=== PATIENT | female | born 1990 | race Caucasian/White ===

== ENCOUNTER 2016-10-07 16:47 | Emergency (ER) | payer OTHER ==
[~2016-10-07] VITALS: Ht 154.9 cm; Wt 68.0 kg
[~2016-10-07 16:47] MED LIST: FERR-55 PO; PREN-39 PO
[2016-10-07 16:57] VITALS: Ht 154.9 cm; Wt 68.0 kg
--- NOTE | 2016-10-07 18:57 | RADRPT ---
PROCEDURE: Real Time Sonogram. 10/07/2016 05:53 p.m. CLINICAL INDICATION: Abdominal pain. TECHNIQUE: This procedure was performed on a [facility]ang real time Unit using a endovaginal probe. COMPARISON: None FINDINGS: The uterus is enlarged. Contains a single viable fetus with gestational sac. Presentation: Mobile. Cervical Length: Not measured.Placental Location: Anterior fundal grade 0.Placental Previa: No. Body limb and cardiac motion: Gas.Heart rate: 154 beats per minute. Amniotic fluid volume:Normal. Measured data: BPD:2.6 cm14 weeks 4 days. HC:9.7 cm14 weeks 3 days. AC:8.8 cm15 weeks 3 days FC:1.4 cm14 weeks 2 days AUA:14 weeks 4 daysplus or minus 1 week 0 days. BRODY (AUA):04/03/2017. Serial scan estimated menstrual age: Not calculated. weight: 102.1 g plus or minus 15.32 g Endovaginal imaging utilized: Yes. Additional findings: The ovaries were not evaluated. No free fluid or adnexal masses are identified . IMPRESSION: See above RPTAT:AAJJ Physician Lucila Date Time Electronically viewed and signed by Physician Lucila on 10/07/2016 18:56 /
[2016-10-07 19:40] LABS: URINE BLOOD (Dip) POC Negative (NEGATIVE)
[2016-10-07 19:43] LABS: URINE BLOOD (Dip) POC Negative (NEGATIVE)
[2016-10-07] MEDS ORDERED: CEPH-443 PO (19:57)
--- NOTE | 2016-10-07 20:00 | ERD ---
ER Documentation Chief Complaint Date/Time DATE: 10/07/16 TIME: 19:58 Chief Complaint ABDOMINAL PAIN X 3 DAYS, CHEST PAIN X 6 DAYS, 15 WEEKS HPI Patient is a 26-year-old with one spontaneous approximately 15 weeks complaining of bilateral lower pelvic pain that she has had for approximately 3 days. Pain is throbbing 8 out of 10 nonradiating. She denies any dysuria or hematuria but does admit to urinary frequency. Denies any vaginal bleeding. Denies any nausea or vomiting or diarrhea. She is complaining of chest pain that she has had for 6 days. Denies any palpitations or shortness of breath. She has a history of pericardial tissue heart valve. ROS All systems reviewed and are negative except as per history of present illness. Medications Home Meds Active Scripts Cephalexin* (Keflex*) 500 Mg Capsule, 500 MG PO BID for 5 Days, CAP Prov:MARIBELL COLEY PA-C 10/07/16 Reported Medications Ferrous Sulfate* (Ferrous Sulfate*) 325 Mg Tablet, 325 MG PO BID 01/30/13 Vits W-Ca,Fe,Fa(<1MG) ( Vitamins) 1 Tab Tablet, 1 TAB PO DAILY , #1 01/30/13 Allergies Allergies: Coded Allergies: No Known Allergy (Unverified , 01/30/13) PMhx/Soc Medical and Surgical Hx: pt denies Medical Hx, pt denies Surgical Hx Hx Alcohol Use: No Hx Substance Use: No Hx Tobacco Use: No Smoking Status: Never smoker FmHx Family History: No diabetes Physical Exam Vitals Vital Signs Date Time Temp Pulse Resp B/P Pulse Ox O2 Delivery O2 Flow Rate FiO2 10/07/16 16:57 98.2 81 18 106/70 99 Physical Exam General: well developed, well nourished, alert, nontoxic, no distress Head: normocephalic, atraumatic Neck: Supple, nontender, no lymphadenopathy, no midline tenderness Respiratory: Clear to auscaultation bilaterally, speaks in full sentences, no use of accesory muscles or labored breathing, no rales, ronchi, or wheezing Cardiovascular: RRR, No murmurs GI: soft, non tender, non distended, negative murphys sign, negative mcburneys point tenderness, no cva tenderness bilaterally, no rebound or guarding Back: no midline tenderness, no step offs or bony abnormalities, sensation to light touch in tact Extremities: moving all extremities normally, normal gait, no edema Results 24 hrs Laboratory Tests Test 10/07/16 19:42 10/07/16 19:45 Bedside Urine pH (LAB) 6.0 6.5 Bedside Urine Protein (LAB) 1+ 1+ Bedside Urine Glucose (UA) Negative Negative Bedside Urine Ketones (LAB) 1+ 1+ Bedside Urine Blood Negative Negative Bedside Urine Nitrite (LAB) Negative Negative Bedside Urine Leukocyte Esterase (L Trace Trace Procedures/MDM female has abdominal pain and chest pain. Her vital signs are normal. She is well-appearing in no distress. EKG was normal sinus rhythm with a rate of 76 with no evidence of ST elevation or acute ischemic changes. I reviewed the case with Dr. 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 He explained that this is chronic and there is low concern for any emergent acute etiology for her chest pain. She should follow-up with her regular doctor given that her EKG is okay. Urine did show evidence of cystitis. Ultrasound showed normal intrauterine . Patient was discharged with Keflex. Recommended this patient follow up with her primary care doctor within 48 hours or return to the emergency room for any worsening of symptoms. However this time I do believe there is suitable for outpatient management. I answered all their questions and they agreed with the plan and were discharged home. Departure Diagnosis: Primary Impression: Chest pain Additional Impression: Cystitis Condition: Stable Patient Instructions: Cystitis, Chest Pain, Uncertain Cause Additional Instructions: Llame al doctor WENDY y aide denise ANDRES PARA DENTRO DE 1-2 ZAMARRIPA.Dgale a la secretaria que nosotros le instruimos hacer esta andres.Avise o llame si crespo condicin se empeora antes de la andres. Regresa aqui si peor o no mejor. MARIBELL COLEY PA-C October 07, 2016 20:00
[2016-10-07 20:01] LABS: ADD UMIC YES; URINE BILIRUBIN (Dip) NEGATIVE (NEGATIVE); URINE BLOOD (Dip) NEGATIVE (NEGATIVE); URINE COLOR YELLOW (YELLOW); URINE GLUCOSE (Dip) NEGATIVE (NEGATIVE); URINE KETONES (Dip) 15 (NEGATIVE); URINE LEUKOCYTE ESTERASE (Dip) 1+ (NEGATIVE); URINE NITRITE (Dip) NEGATIVE (NEGATIVE); URINE TOTAL PROTEIN (Dip) TRACE (NEGATIVE); URINE UROBILINOGEN (Dip) 1.0 E.U./dL (0.1-1.0)
[2016-10-07 20:10] VITALS: BP 108/60; PULSE 68; RESP 16
[2016-10-07 20:21] LABS: BACTERIA,URINE MODERATE; SQUAMOUS EPITHELIAL CELL,UR MANY; URINE RBCS 0-2 /HPF (0)
== END 2016-10-07 20:12 | disposition home or self-care (01) ==
LOC: FTE 16:47
DX: O99.89 Other specified diseases and conditions complicating pregnancy, childbirth and the puerperium (principal); O23.12 Infections of bladder in pregnancy, second trimester; R10.9 Unspecified abdominal pain; R07.9 Chest pain, unspecified; Z3A.15 15 weeks gestation of pregnancy
CPT/HCPCS: 76805; 81001; 81003; 93005

== ENCOUNTER 2017-04-01 16:44 | Inpatient (IN) | payer OTHER ==
[~2017-04-01] VITALS: Ht 154.9 cm; Wt 83.9 kg
[~2017-04-01 16:44] MED LIST changes: +CEPH-443 PO
--- NOTE | 2017-04-01 16:51 | TRIAGE ---
OB Triage Datetime Report Generated by CPN: 04/01/2017 16:51 Datetime: 04/01/2017 16:50 Time of Arrival: 04/01/2017 16:25 EGA: 39.4 Arrived By: Ambulatory Arrived From: Home Chief Complaint: ucs Movement: Present Contractions: Regular Time Contractions Began: 04/01/2017 08:00 Rupture of Membranes: Denies Vaginal Bleeding: Normal Show Vaginal Discharge: Present Recent Sexual Intercouse: Denies Abdominal Trauma: Not Applicable Patient Complaints: Contractions Datetime: 04/01/2017 16:49 Vaginal Exam Dilatation (cms): 6.0 Effacement (%): 90 Station: -3 Exam By: soraida harmon rn Membrane Status: Bulging Vaginal Bleeding: Normal Show Cervix, Consistency: Soft Cervix, Position: Midposition Presentation 'A': Cephalic
[2017-04-01] MEDS ORDERED: LACTATED RINGER'S 1,000 ML IV SCH (17:37)
[2017-04-01] MEDS ORDERED: LIDOCAINE 1% (MPF) 30 ML INJ INJ PRN (18:00)
[2017-04-01] MEDS ORDERED: OXYTOCIN 30 UNITS/LR 500 ML IV SCH (18:00)
[2017-04-01] MEDS ORDERED: OXYTOCIN 30 UNITS/LR 500 ML IV PRN ×2 (18:00→23:30)
[2017-04-01] MEDS ORDERED: IBUPROFEN 600 MG TAB PO PRN (18:00)
[2017-04-01] MEDS ORDERED: METHYLERGONOVINE 0.2 MG INJ IM PRN ×2 (18:00→23:30)
[2017-04-01] MEDS ORDERED: CARBOPROST 250 MCG INJ IM PRN ×2 (18:00→23:30)
[2017-04-01] MEDS ORDERED: BUTORPHANOL 2 MG INJ IV PRN (18:00)
[2017-04-01] MEDS ORDERED: LACTATED RINGER'S 1,000 ML IV PRN (18:00)
[2017-04-01] MEDS ORDERED: MISOPROSTOL 200 MCG TAB PR PRN ×2 (18:00→23:30)
[2017-04-01] MEDS: OXYTOCIN 30 UNITS/LR 500 ML IV SCH ×2 (18:42→19:55)
[2017-04-01 18:56] VITALS: Ht 154.9 cm; Wt 83.9 kg
[2017-04-01 18:57] VITALS: BP 124/62; PULSE 71; RESP 20
--- NOTE | 2017-04-01 19:55 | HP ---
Date/Time of Note Date/Time of Note DATE: 04/01/17 TIME: 19:40 OB - History Hx of Present Free Text/Dictation 27 [id number](sab) at 39w4d who had x1 c/s andf/b x2 here for in active labor with intact membrane. initial VE 6cm/90/-3 GBS neg admitted gor expectant management ,allow her to try . Past Family/Social History * Past Medical, Surgical, Family and Obstetric Histories reviewed from chart. OB Admission Exam Vital Signs Vital Signs Vital Signs Date Time Temp Pulse Resp B/P Pulse Ox O2 Delivery O2 Flow Rate FiO2 04/01/17 18:57 98.4 71 20 124/62 97 Room Air Physical Exam HEENT: WNL Heart: Rhythm Normal Lungs: Clear, Equal Abdomen: WNL Extremities: Normal Reflexes: Normal Cervical Dilatation: 6cm Effacement: Other (90%) Station: -3 Membranes: Intact Amniotic Fluid: Unevaluable Heart Rate: 140's Accelerations: Accelerations Present Decelerations: No Decelerations Varibility: Moderate Contractions on Admission: < 5 Minutes Apart Intensity: Moderate Last 72 hours Lab Results CBC & BMP 04/01/17 17:25 OB Assessment/Plan Reason for admission: active labor Other Assessment: IUP 39w4d with X1 previous section f/b x2VBAC in active labor Plan: Expectant Management NIKOS FREEMAN MD Apr 01, 2017 19:52
--- NOTE | 2017-04-01 20:03 | LDN ---
Date/Time of Note Date/Time of Note DATE: 04/01/17 TIME: 19:56 Delivery Summary vaginal delivery after cessarean section Weeks of Gestation 39w4d Placenta Delivered: Spontaneously Meconium: none Episiotomy: No Perineal laceration: 0 Anesthesia type: None Estimated blood loss: 300 Sponge & Needle done & correct: Yes All needle counts correct: Yes Any foreign bodies felt in the: No Problems: Infant Delivery Information Sex Infant Sex: male Apgars 1 Minute: 9 5 Minute: 9 Suctioning Nose & mouth suctioned at jessica: Yes Delee suction performed: No Umbilical Cord Umbilical cord with: 3 Vessels Cord presentations: no nuchal cord Cord Blood was obtained: Yes Mother & Baby Disposition Disposition Mom & Baby to Maternity; Good: Yes Mom transferred to: Other () Baby to NICU: No NIKOS FREEMAN MD Apr 01, 2017 20:03
[2017-04-01 22:50] VITALS: BP 110/55; PULSE 61; RESP 18
[2017-04-01 23:15] VITALS: BP 110/60; PULSE 70; RESP 20
[2017-04-01] MEDS ORDERED: WITCH HAZEL/GLYCERIN PAD PR PRN (23:30)
[2017-04-01] MEDS ORDERED: ZOLPIDEM 5 MG TAB PO PRN (23:30)
[2017-04-01] MEDS ORDERED: BENZOCAINE 20% 56 ML SPRAY TOP PRN (23:30)
[2017-04-01] MEDS ORDERED: OXYCODONE/ASPIRIN (4.88/325) TAB PO PRN ×2 (23:30)
[2017-04-01] MEDS ORDERED: LANOLIN 7 GM TUBE TOP PRN (23:30)
[2017-04-02] VITALS: BP 102/55; PULSE 70; RESP 18
[2017-04-02] MEDS: IBUPROFEN 600 MG TAB PO SCH ×4 (00:13→17:29)
[2017-04-02 04:00] VITALS: BP 120/62; PULSE 60; RESP 18
[2017-04-02 08:00] VITALS: BP 101/52; PULSE 60; RESP 18
[2017-04-02] MEDS: ASPIRIN 81 MG TAB PO SCH (09:07)
[2017-04-02] MEDS: SENNA/DOCUSATE NA (8.6MG/50MG) TAB PO SCH ×2 (09:07→22:52)
[2017-04-02] MEDS ORDERED: INFLUENZA VIRUS VACCINE 0.5 ML SYG IM* ONE (10:00)
--- NOTE | 2017-04-02 11:05 | PN ---
Date/Time of Note Date/Time of Note DATE: 04/02/17 TIME: 11:03 OB Subjective Subjective Subjective no c/o OB Objective Objective Objective vss afebrile fundus firm lochia mod calf neg for tenderness OB Assessment/Plan Other Assessment: stable post vaginal delivery #1 Other plan: Rhogam discharge home in am NIKOS FREEMAN MD Apr 02, 2017 11:05
[2017-04-02 15:40] VITALS: BP 92/50; PULSE 72; RESP 18
[2017-04-02 19:50] VITALS: BP 114/79; RESP 20
[2017-04-03] MEDS: IBUPROFEN 600 MG TAB PO SCH ×4 (00:20→18:03)
[2017-04-03 04:20] VITALS: BP 120/60; PULSE 80; RESP 18
[2017-04-03 08:00] VITALS: BP 107/56; PULSE 69; RESP 18
[2017-04-03] MEDS ORDERED: INFLUENZA VIRUS VACCINE 0.5 ML (DISPENSING) IM* ONE (09:00)
[2017-04-03] MEDS ORDERED: DIPHTH/TET/ACEL PERTUSS (ADULT) 0.5 ML VIAL IM* ONE (09:00)
[2017-04-03] MEDS: ASPIRIN 81 MG TAB PO SCH (09:05)
[2017-04-03] MEDS: SENNA/DOCUSATE NA (8.6MG/50MG) TAB PO SCH (09:05)
[2017-04-03 16:00] VITALS: BP 104/69; PULSE 68; RESP 18
--- NOTE | 2017-04-03 19:11 | PD.PPDC ---
DIVISION HUMAN RESOURCES MANAGER Discharge Instruction Diagnosis Final Diagnosis: \s/p normal vaginal delivery of macrosomia Condition Patient Condition: Stable Diet Diet: Resume Regular Diet Activity/Restrictions Activity: May Shower Restrictions: No Lifting No Sexual Activity Nothing in the Vagina No [place] No Tampons, douche Follow-up Follow-up with Physician: 2, Week/Weeks Provider Information: f/u with 3rd pressman in [facility] Return to clinic for SHANK SANDER Instructions: Fever greater than 101 Chills Worsening abdominal pain Excessive Vaginal Bleeding More than 2 pads per hour Unable to tolerate diet OB Instructions: Breast Tenderness Depression Blurried Vision Headache NIKOS FREEMAN MD Apr 03, 2017 19:11
--- NOTE | 2017-04-03 19:11 | PD.PPDC ---
NICKEL PLATER Discharge Instruction Diagnosis Final Diagnosis: \s/p normal vaginal delivery of macrosomia Condition Patient Condition: Stable Diet Diet: Resume Regular Diet Activity/Restrictions Activity: May Shower Restrictions: No Lifting No Sexual Activity Nothing in the Vagina No [place] No Tampons, douche Follow-up Follow-up with Physician: 2, Week/Weeks Provider Information: f/u with electric mule driver in [facility] Return to clinic for SAMPLE WASHER Instructions: Fever greater than 101 Chills Worsening abdominal pain Excessive Vaginal Bleeding More than 2 pads per hour Unable to tolerate diet OB Instructions: Breast Tenderness Depression Blurried Vision Headache NIKOS FREEMAN MD Apr 03, 2017 19:11
--- NOTE | 2017-04-03 19:11 | PD.PPDC ---
PHOTOFINISHING LABORATORY WORKER Discharge Instruction Diagnosis Final Diagnosis: \s/p normal vaginal delivery of macrosomia Condition Patient Condition: Stable Diet Diet: Resume Regular Diet Activity/Restrictions Activity: May Shower Restrictions: No Lifting No Sexual Activity Nothing in the Vagina No [place] No Tampons, douche Follow-up Follow-up with Physician: 2, Week/Weeks Provider Information: f/u with solvent mixer in [facility] Return to clinic for INORGANIC CHEMIST Instructions: Fever greater than 101 Chills Worsening abdominal pain Excessive Vaginal Bleeding More than 2 pads per hour Unable to tolerate diet OB Instructions: Breast Tenderness Depression Blurried Vision Headache NIKOS FREEMAN MD Apr 03, 2017 19:11
--- NOTE | 2017-04-03 19:14 | DS ---
Date/Time of Note Date/Time of Note DATE: 04/03/17 TIME: 19:12 Obstetrical Discharge Record Final Diagnosis Final Diagnosis: Term delivered Vaginal Delivery Obstetrical Delivery: Spontaneous Complications Augmentation: Yes Rupture of Membranes: No Condition on Discharge Physical Assessment Last Vitals: vss afebrile Voiding: Yes Bowel Movement: Yes Breast: Soft, non-tender Calf Tenderness: No Patient Condition: Stable NIKOS FREEMAN MD Apr 03, 2017 19:14
== END 2017-04-03 20:30 | disposition home or self-care (01) | DRG 775 ==
LOC: OBT 16:44 → L-D 16:45 → OBT 17:04 → L-D 17:04 → PP1 22:10
PROVIDERS: ADMIT Specialist; ATTEND Specialist
PROC: 10E0XZZ Delivery of Products of Conception, External Approach (ICD-10-PCS; principal; 2017-04-01)
PROC: 3E0P3VZ Introduction of Hormone into Female Reproductive, Percutaneous Approach (ICD-10-PCS; 2017-04-01)
DX: O34.211 Maternal care for low transverse scar from previous cesarean delivery (principal); Z37.0 Single live birth; Z3A.39 39 weeks gestation of pregnancy
CPT/HCPCS: 85025; 85610; 85730; 86592; 86850; 86870; 86885; 86900; 86901; 87340; 90686; 90715; 99464; G0463; J2210; J2590; J2790; J7120

== ENCOUNTER 2018-03-27 14:22 | Emergency (ER) | END 2018-03-27 19:02 | disposition home or self-care (01) ==